=== PATIENT | male | born 1935 | race Caucasian/White ===

== ENCOUNTER → 2016-11-30 | Outpatient (CLI) | payer MEDICARE, OTHER ==
[~2016-11-30] MED LIST: ARIC5TAB PO; ASPI81TA82 PO; CARB25TA PO; CHOL1CAP6 PO; FURO1TAB93 PO; K-TA10TA5 PO; KLON2TAB PO; MIRA33502 PO; OMEG5CAP PO; PROT40TA PO; ROSU20 PO; SUCR1S PO; TAMS0.4C4 PO; TERA2CAP3 PO; ULTR50TA PO; ZETI10TA5 PO
--- NOTE | 2016-12-01 10:41 | RSPPFT ---
DATE OF PROCEDURE: 11/30/16 COMMENTS: Spirometry with FVC of 2.9 predicted 5.0, FEV1 of 2.0 predicted 3.2, FEV1/FVC ratio 68% predicted 63%. Air trapping is present with RV at 5.0 predicted 3.1. DLCO is 90 of predicted. IMPRESSION: On the basis of the above, patient has an obstructive lung defect with air trapping. There is no response to acutely inhaled bronchodilator.
== END ==
LOC: HRSP 12:49
PROVIDERS: ATTEND Internal Medicine Pulmonary Disease
DX: J45.909 Unspecified asthma, uncomplicated (principal)
CPT/HCPCS: 94060; 94620; 94726; 94729

== ENCOUNTER → 2017-07-26 | Outpatient (CLI) | payer MEDICARE, OTHER ==
[~2017-07-26] VITALS: Ht 193 cm; Wt 107.0 kg
[~2017-07-26] MED LIST changes: -ARIC5TAB PO; +ASPI-110 PO; -ASPI81TA82 PO; +BENZOCAINE 20% ORAL SPR 60 ML CAN OROPHARYNG ONE; +CARA1TAB6 PO; -CARB25TA PO; -CHOL1CAP6 PO; +DONE5TAB7 PO; +FISH1200 PO; -FURO1TAB93 PO; +FURO40TA PO; -K-TA10TA5 PO; +LIDOCAINE HCL 2% JELLY 5 ML SYRINGE OTHER ONE; +MIRA3350 PO; -MIRA33502 PO; -OMEG5CAP PO; +PANT40TA3 PO; +POTA1TAB4 PO; -PROT40TA PO; +SINE25TA PO; -SUCR1S PO; +TRAM50TA PO; -ULTR50TA PO; +VITA100018 PO
[2017-07-26 07:42] VITALS: BP 141/65; PULSE 47; RESP 16; TEMP 97.7; O2SAT 97
== END ==
LOC: HSDC 05:56
PROVIDERS: ATTEND Hospitalist
DX: R13.10 Dysphagia, unspecified (principal)
CPT/HCPCS: 91010